=== PATIENT | female | born 1955 | race African-American/Black ===

== ENCOUNTER 2021-12-05 10:08 | Emergency (ER) | payer MEDICARE, OTHER ==
[2021-12-05 10:55] LABS: #Eosinphils 0.1 10x3/uL (0.0-0.5); #Monocytes 0.6 10x3/uL (0.0-1.1); #Neutrophils 2.9 10x3/uL (1.5-8.4); %Basophils 0.4 % (0.0-2.0); %Eosinophils 1.7 % (0.0-6.0); %Lymphocytes 23.5 % (18.0-47.0); %Monocytes 12.2 % (0.0-10.0); %Neutrophils 61.8 % (40.0-75.0); Hemoglobin 12.6 g/dL (12.0-15.5); Mean Corpuscular Hemoglobin 26.5 pg (27.0-33.0); Mean Corpuscular Volume 85.5 fl (81.6-98.3); Mean Platelet Volume 10.2 fl (7.4-10.4); Platelet Count 281 10x3/uL (150-450); RBC Distribution Width 14.7 % (11.5-14.5); Red Blood Cell (RBC) Count 4.75 10x6/uL (3.90-5.03); White Blood Cell (WBC) Count 4.8 10x3/uL (3.5-10.5)
[2021-12-05 11:01] LABS: ALT (SGPT) 19 U/L (8-55); AST (SGOT) 23 U/L (5-34); Albumin 3.8 g/dL (3.4-4.8); Alkaline Phosphatase 71 U/L (40-110); Anion Gap 14 mmol/L (10-20); BUN (Urea Nitrogen) 18 mg/dL (9.8-20.1); Bilirubin, Total 0.3 mg/dL (0.2-1.2); Calc. Creatinine Clearance 0 mL/min (70-130); Calcium 10.1 mg/dL (7.8-10.44); Carbon Dioxide 27 mmol/L (23-31); Chloride 99 mmol/L (98-107); Estimated GFR 50; Globulin 3.9 g/dL (2.4-3.5); Glucose 285 mg/dL (80-115); Potassium 4.4 mmol/L (3.5-5.1); Protein, Total 7.7 g/dL (5.8-8.1); Sodium 136 mmol/L (136-145)
[2021-12-05] MEDS ORDERED: Morphine 4 MG/ML VIAL ONE (11:59)
[2021-12-05] MEDS ORDERED: Ondansetron PF 4 MG/2 ML Vial ONE (11:59)
== END 2021-12-05 15:00 | disposition home or self-care (01) ==
LOC: CSHERS 10:08
DX: J32.9 Chronic sinusitis, unspecified (principal); Z79.899 Other long term (current) drug therapy; Z79.84 Long term (current) use of oral hypoglycemic drugs; Z79.82 Long term (current) use of aspirin; I10 Essential (primary) hypertension; E11.9 Type 2 diabetes mellitus without complications; E78.5 Hyperlipidemia, unspecified
CPT/HCPCS: 36415; 70492; 71045; 80053; 85025; 96374; 96375; J2270; J2405

== ENCOUNTER 2023-05-20 07:32 | Day surgery (SDC) | payer OTHER, MEDICAID ==
[2023-05-19 09:55] VITALS: BMI 42.5
[2023-05-20] MEDS ORDERED: PROPOFOL 40 ML ONE (10:37)
[2023-05-20] MEDS ORDERED: Glycopyrrolate 0.2 MG/ML 5 ML SYRINGE ONE (10:37)
[2023-05-20] MEDS ORDERED: Lidocaine 1% PF 5 ML VIAL ONE (10:37)
== END 2023-05-20 11:30 | disposition home or self-care (01) ==
LOC: CSHSDC 07:32
PROVIDERS: ATTEND Internal Medicine Gastroenterology
PROC: 0DB68ZX Excision of Stomach, Via Natural or Artificial Opening Endoscopic, Diagnostic (ICD-10-PCS; principal; 2023-05-20)
DX: K31.89 Other diseases of stomach and duodenum (principal); K25.9 Gastric ulcer, unspecified as acute or chronic, without hemorrhage or perforation; K31.84 Gastroparesis; K21.9 Gastro-esophageal reflux disease without esophagitis; E11.9 Type 2 diabetes mellitus without complications; I10 Essential (primary) hypertension; E66.9 Obesity, unspecified; E78.5 Hyperlipidemia, unspecified; M19.90 Unspecified osteoarthritis, unspecified site; J45.909 Unspecified asthma, uncomplicated; Z88.5 Allergy status to narcotic agent; Z79.899 Other long term (current) drug therapy; Z79.82 Long term (current) use of aspirin; Z96.659 Presence of unspecified artificial knee joint; Z90.710 Acquired absence of both cervix and uterus; Z98.890 Other specified postprocedural states; Z68.41 Body mass index [BMI] 40.0-44.9, adult
CPT/HCPCS: 88305; J2704

== ENCOUNTER 2023-11-16 11:59 | Outpatient (CLI) | payer OTHER, MEDICAID ==
[2023-11-16 13:28] LABS: Anion Gap 16 mmol/L (10-20); BUN (Urea Nitrogen) 16 mg/dL (9.8-20.1); Calc. Creatinine Clearance 0 mL/min (70-130); Calcium 9.9 mg/dL (7.8-10.44); Carbon Dioxide 26 mmol/L (23-31); Chloride 106 mmol/L (98-107); Estimated GFR 60; Glucose 138 mg/dL (80-115); Potassium 4.1 mmol/L (3.5-5.1); Sodium 144 mmol/L (136-145)
== END 2023-11-16 12:00 | disposition home or self-care (01) ==
LOC: CSHLAB 11:59
PROVIDERS: ATTEND Podiatrist Foot & Ankle Surgery
DX: Z01.818 Encounter for other preprocedural examination (principal); M20.42 Other hammer toe(s) (acquired), left foot
CPT/HCPCS: 80048; 93005; 93010

== ENCOUNTER 2023-12-01 12:08 | Emergency (ER) | payer OTHER, MEDICAID ==
[2023-12-01 13:30] LABS: ALT (SGPT) 18 U/L (8-55); AST (SGOT) 20 U/L (5-34); Albumin 3.7 g/dL (3.4-4.8); Alkaline Phosphatase 68 U/L (40-110); Anion Gap 14 mmol/L (10-20); BUN (Urea Nitrogen) 14 mg/dL (9.8-20.1); Bilirubin, Total 0.4 mg/dL (0.2-1.2); Calc. Creatinine Clearance 0 mL/min (70-130); Calcium 9.6 mg/dL (7.8-10.44); Carbon Dioxide 26 mmol/L (23-31); Chloride 103 mmol/L (98-107); Estimated GFR 63; Globulin 3.7 g/dL (2.4-3.5); Glucose 114 mg/dL (80-115); Potassium 3.9 mmol/L (3.5-5.1); Protein, Total 7.4 g/dL (5.8-8.1); Sodium 139 mmol/L (136-145)
[2023-12-01 13:36] LABS: Troponin I Less than 0.010 ng/mL (< 0.028)
[2023-12-01 13:41] LABS: #Basophils 0.02 10x3/uL (0.0-0.2); #Eosinphils 0.06 10x3/uL (0.0-0.5); #Monocytes 0.78 10x3/uL (0.0-1.1); #Neutrophils 4.49 10x3/uL (1.5-8.4); %Basophils 0.3 % (0.0-2.0); %Eosinophils 0.9 % (0.0-6.0); %Monocytes 12.2 % (0.0-10.0); %Neutrophils 70.4 % (40.0-75.0); Hematocrit 40.1 % (34.9-44.5); Hemoglobin 12.8 g/dL (12.0-15.5); Mean Corpuscular HGB CONC 31.9 g/dL (32.0-36.0); Mean Corpuscular Hemoglobin 27.4 pg (27.0-33.0); Mean Corpuscular Volume 85.9 fL (81.6-98.3); Mean Platelet Volume 9.7 fL (7.4-10.4); Platelet Count 260 10x3/uL (150-450); RBC Distribution Width 14.5 % (11.5-14.5); Red Blood Cell (RBC) Count 4.67 10x6/uL (3.90-5.03); White Blood Cell (WBC) Count 6.4 10x3/uL (3.5-10.5)
[2023-12-01 13:55] LABS: Influenza A by NAA Not Detected (NotDetected); Influenza B by NAA Not Detected (NotDetected); SARS-CoV-2 NAA Rapid Test DETECTED (NotDetected)
== END 2023-12-01 15:45 | disposition home or self-care (01) ==
LOC: CSHERS 12:08
DX: U07.1 COVID-19 (principal); E86.0 Dehydration; I10 Essential (primary) hypertension; E11.9 Type 2 diabetes mellitus without complications
CPT/HCPCS: 0240U; 71045; 71275; 80053; 83605; 84484; 85025; 85379; 87040; 93005; 36415; 96360

== ENCOUNTER 2024-01-13 10:06 | Day surgery (SDC) | payer OTHER, MEDICAID ==
[2024-01-11 15:38] VITALS: BMI 44.2
[2024-01-13] MEDS ORDERED: Bupivacaine PF 0.5% 30 ML VIAL ONE (10:08)
[2024-01-13] MEDS ORDERED: Sevoflurane 250 ML INH ANEST BOTTLE ONE (10:19)
[2024-01-13] MEDS ORDERED: CEFAZOLIN 2 GM VIAL ONE (11:49)
[2024-01-13] MEDS ORDERED: PROPOFOL 20 ML ONE (11:56)
[2024-01-13] MEDS ORDERED: fentaNYL 50 mcg/mL 1 mL Vial ONE ×2 (11:56→12:31)
[2024-01-13] MEDS ORDERED: Ondansetron PF 4 MG/2 ML Vial ONE (12:39)
[2024-01-13] MEDS ORDERED: Metoclopramide HCl 10 MG (2 mL) VIAL ONE (12:39)
== END 2024-01-13 15:00 | disposition home or self-care (01) ==
LOC: CSHSDC 10:06
PROVIDERS: ATTEND Podiatrist Foot & Ankle Surgery
PROC: 0SGQ04Z Fusion of Left Toe Phalangeal Joint with Internal Fixation Device, Open Approach (ICD-10-PCS; principal; 2024-01-13)
DX: M20.42 Other hammer toe(s) (acquired), left foot (principal); E11.9 Type 2 diabetes mellitus without complications; I10 Essential (primary) hypertension; E78.00 Pure hypercholesterolemia, unspecified; Z79.4 Long term (current) use of insulin; Z79.899 Other long term (current) drug therapy; L85.1 Acquired keratosis [keratoderma] palmaris et plantaris; B35.1 Tinea unguium
CPT/HCPCS: 28285 ×3; 73620; 82962; J0665; J2405; J2704; J2765; J3010; 36416

== ENCOUNTER 2024-03-19 14:15 | Outpatient (CLI) | payer OTHER, MEDICAID | END 2024-03-19 14:16 | disposition home or self-care (01) | LOC: CSHCP 14:15 | PROVIDERS: ATTEND Family Medicine | DX: R06.09 Other forms of dyspnea (principal); R94.2 Abnormal results of pulmonary function studies | CPT/HCPCS: 94010; 94664; 94726; 94729; 94760 ==